=== PATIENT | female | born 1980 | race Caucasian/White ===

== ENCOUNTER 2025-01-13 09:10 | Outpatient (AMB) | payer OTHER, SELFPAY ==
--- NOTE | 2025-01-13 09:18 | MHC.OFFVIS ---
Vital Signs 01/13/25 09:22 Height 5 ft 7 in Weight 213 lb BMI 33.4 BP 118/70 Intake Visit Reasons: AUB Warehouse Operations Associate Required: No Information Interpreted: non-clinical & clinical Accompanied by: Self / Same As Patient Allergies No Known Allergies Allergy (Verified 01/13/25 09:25) Is last menstrual period known: No (mirena) HPI Comments Details: Presenting complaining of irregular menstrual cycles over the last few months, the patient had a pelvic ultrasound in an outside facility, no reports available was told that her IUD position is in the uterine segment. Also the patient is complaining of right vulvar lesion Last co testing in 01/26 was ascus/HPV negative done in an outside facility Last mammogram was done in 12/27 according to patient was negative no reports available [facility] Medical History Anxiety Depression Family History Sister Breast cancer Social History Household Members: None Housing: House Housing Other:: Mobile home Alcohol intake: never Patient Tobacco Use Status: Never used Tobacco Current occupational status: employed Current occupation: Post office Sexually active: Yes Sexual orientation: Straight/Heterosexual Gender identity: Female Female Reproductive History Menstrual Age of Menarche: 13 control method: progestin IUCD Total pregnancies: 0 Date of last pap smear: 01/28/24 Date of Mammogram: 12/31/24 Review of Systems Const All systems reviewed & are unremarkable except as noted in HPI and below Card Reports as per HPI Resp Reports as per HPI GI Reports as per HPI and Reports no additional complaints Reports as per HPI Physical Exam Vital Signs: Last Vital Signs BP 118/70 01/13/25 09:22 BMI result Body Mass Index 33.4 Const General: cooperative, healthy appearing and comfortable Chest Chest palpation & inspection: normal inspection of the chest and normal palpation of entire chest wall Breast/axilla inspection: normal inspection of the breasts and normal inspection of the axillae Breast/axilla palpation: normal palpation of the breasts, normal palpation of the axillae and no axillary lymphadenopathy Resp Effort & Inspection: normal respiratory effort Auscultation: clear to auscultation bilaterally Percussion: percussion normal Cardio Palpation: normal PMI Rate: regular rate Rhythm: regular rhythm Heart sounds: no murmurs and no rubs Peripheral pulses: Peripheral pulses 2+ throughout GI Inspection: Yes normal to inspection Palpation (GI): Soft to palpation, nontender, no guarding, not rigid and No hepatosplenomegaly present Percussion: Yes normal to percussion Auscultation: normal bowel sounds Rectal Exam - Female: deferred General: Yes bladder normal to palpation External Female Exam: No normal external appearance (Right upper labia majora lesion 1 cm) and No lesion Speculum Exam - Vagina: normal appearance of the vagina, normal palpation, normal vaginal discharge and not erythematous Speculum Exam - Cervix: normal appearance of the cervix, normal palpation and Other cervical findings present (IUD string in place) Bimanual exam- vagina & uterus: normal bimanual exam, normal palpation, uterine size normal, bladder normal to palpation, consistency normal and normal palpation Bimanual Exam- Adnexa, other: normal adnexae, no masses and no tenderness Results AMB Test Urine AMB Test Urine Negative Last Edit by Leticia Yu CMA on 01/13/25 09:34 Results Reviewed Results Reviewed: Laboratory Last Values Tst Clinic Negative 01/13/25 09:34 Assessment & Plan Assessment & Plan (1) Abnormal uterine bleeding (AUB): Code(s): N93.9 - Abnormal uterine and vaginal bleeding, unspecified Category: Medical Plan: Screening Co testing done, GC and chlamydia taken CBC, TSH, HCG, and pelvic ultrasound ordered. Discussed with the patient the different causes of abnormal bleeding including thyroid disorders, uterine and ovarian pathology, endometrial hyperplasia, carcinoma and other potential causes. Discussed with the patient the work up including CBC (to r/o anemia), TSH, pelvic Ultrasound, endometrial biopsy to r/o endometrial pathology. All questions answered and the patient verbalized understanding. Instructed the patient to schedule an appointment for an endometrial biopsy in 2 weeks. (2) ASCUS of cervix with negative high risk HPV: Comment: In 01/26 Code(s): R87.610 - Atypical squamous cells of undetermined significance on cytologic smear of cervix (ASC-US) Category: Medical Plan: Co testing done will check the results and treat accordingly (3) Malpositioned IUD: Code(s): T83.32XA - Displacement of intrauterine contraceptive device, initial encounter Category: Medical Plan: Will order pelvic ultrasound, instructions given the patient to use a backup method for control till then. Instructions given the patient to schedule an ultrasound and follow-up appointment within 2 weeks will determine the position of the IUD and treat accordingly (4) Vulvar lesion: Comment: Right upper labia majora Code(s): N90.89 - Other specified noninflammatory disorders of vulva and perineum Category: Medical Plan: Discussed with the patient the finding on pelvic exam right upper labia majora lesion, recommended excisional biopsy, instructions given to patient to schedule an appointment for right excisional biopsy within 2 weeks. Orders: Orders AMB HCG Urine Test Today Z32.02 - Encounter for test, result negative Complete Blood Count no Diff Today N93.9 - Abnormal uterine and vaginal bleeding, unspecified TSH reflex Free T4 Today N93.9 - Abnormal uterine and vaginal bleeding, unspecified MM screening mammo BI Today Z12.31 - Encounter for screening mammogram for malignant neoplasm of breast HCG Quantitative Today N93.9 - Abnormal uterine and vaginal bleeding, unspecified US pelvic and transvaginal Today N93.9 - Abnormal uterine and vaginal bleeding, unspecified Coding Level of Care Code New Pt Level 3 (71326) Diagnoses Abnormal uterine bleeding (AUB) N93.9 ASCUS of cervix with negative high risk HPV R87.610 Malpositioned IUD T83.32XA Vulvar lesion N90.89
[2025-01-13 09:22] VITALS: BP 118/70; BMI 33.4
--- OUTSIDE RECORDS SUMMARY | 2025-01-13 10:35 | XMS_ITS | Clinical Summary ---
Author Organization [facility] Address [address] [place] [address] Care Team Providers Care Hematology Technician Name Role Phone Provider, Jamel BRIDGES Primary Care Provider Un available Social History Tobacco Use Types Packs/Day Years Used Date Smoking Tobacco: Never Assessed Comments Unknown Sex and Gender Information Value Date Recorded Sex Assigned at Female 08/25/2023 9:54 AM EDT Legal Sex Female 6:25 PM EDT Gender Identity Female 08/25/2023 9:54 AM EDT Sexual Orientation Choose not to disclose 2023 9:54 AM EDT Plan of Treatment Health Maintenance Due Date Last Done Comments Hepatitis C Virus Screening 1981 HIV Screening 1994 DTaP/Tdap/Td Vaccines (1 - Tdap) 02/12/2000 Hepatitis B Vaccines (1 of 3 - 19+ 3-dose series) 02/12/2000 HPV Vaccines (1 - 3-dose SCD M series) 02/12/2008 COVID-19 Vaccine (2023-2 5 season) 2025 Pneumococcal Vaccine: Pediat alexandria (0-5 Years) and At-Risk Patients (6 to 49 Years) Aged Out No longer eligible b ased on patient's age to complete this topic Care Teams Hematology Technician Relationship Specialty Start Date End Date ProviderJamel MD PCP - General 11/24/13
== END 2025-01-13 09:58 | disposition home or self-care (01) ==
LOC: HO.HWS 09:10
PROVIDERS: PCP Nurse Practitioner Family; Visit Provider Obstetrics & Gynecology
DX: N93.9 Abnormal uterine and vaginal bleeding, unspecified (principal); R87.610 Atypical squamous cells of undetermined significance on cytologic smear of cervix (ASC-US); T83.32XA Displacement of intrauterine contraceptive device, initial encounter; N90.89 Other specified noninflammatory disorders of vulva and perineum; Z32.02 Encounter for pregnancy test, result negative
CPT/HCPCS: 99203

== ENCOUNTER 2025-01-13 09:10 | Outpatient (REF) | payer OTHER, SELFPAY ==
[2025-01-13 11:12] LABS: Hematocrit 39.1 % (37.0-47.0); Hemoglobin 12.6 g/dl (12.0-16.0); Mean Corpuscular HGB Conc 32.2 g/dl (31.0-35.0); Mean Corpuscular Hemoglobin 26.0 pg (27.0-33.0); Mean Corpuscular Volume 80.8 fL (80.0-98.0); NRBC Abs Auto 0.000 X10*3/uL (0.0-0.012); NRBC Pct Auto 0.0 /100WBC (0.0-0.2); Platelet Count 377 X10*3/uL (160-400); Red Blood Count 4.84 X10*6/uL (4.20-5.50); White Blood Count 7.9 X10*3/uL (4.8-10.8)
== END 2025-01-13 09:11 | disposition home or self-care (01) ==
LOC: HO.LAB 09:10
PROVIDERS: PCP Nurse Practitioner Family; Visit Provider Obstetrics & Gynecology
DX: N93.9 Abnormal uterine and vaginal bleeding, unspecified (principal); T83.32XA Displacement of intrauterine contraceptive device, initial encounter; N90.89 Other specified noninflammatory disorders of vulva and perineum; R87.610 Atypical squamous cells of undetermined significance on cytologic smear of cervix (ASC-US); Z32.02 Encounter for pregnancy test, result negative
CPT/HCPCS: 36415; 81025; 84443; 84702; 85027; 99202

== ENCOUNTER 2025-01-13 09:58 | Outpatient (REF) | payer OTHER, SELFPAY ==
[2025-01-13 22:23] LABS: CT PCR NOT DETECTED (Not Detect.); NG PCR NOT DETECTED (Not Detect.)
== END 2025-01-13 09:59 | disposition home or self-care (01) ==
LOC: HO.LNP 09:58
PROVIDERS: Visit Provider Obstetrics & Gynecology
DX: Z11.51 Encounter for screening for human papillomavirus (HPV) (principal); N93.9 Abnormal uterine and vaginal bleeding, unspecified; R87.610 Atypical squamous cells of undetermined significance on cytologic smear of cervix (ASC-US)
CPT/HCPCS: 87491; 87591; 87626; 88175

== ENCOUNTER 2025-02-03 11:08 | Outpatient (AMB) | payer OTHER, SELFPAY ==
--- NOTE | 2025-02-03 11:45 | MHC.OFFVIS ---
Vital Signs 02/03/25 11:48 Height 5 ft 7 in Weight 210 lb BMI 32.9 BP 138/78 Intake Visit Reasons: iud removal Allergies No Known Allergies Allergy (Verified 01/13/25 09:25) HPI Comments Details: Presenting for EMB. Received a copy of ultrasound done in 11/26 at the [facility] where a pelvic ultrasound showed abnormal IUD location in the cervix. The patient is interested in Mirena IUD reinsertion [facility] Medical History Anxiety Depression Family History Sister Breast cancer Social History Household Members: None Housing: House Housing Other:: Mobile home Alcohol intake: never Patient Tobacco Use Status: Never used Tobacco Current occupational status: employed Current occupation: Post office Sexual orientation: Straight/Heterosexual Gender identity: Female Female Reproductive History Menstrual Age of Menarche: 13 Office Procedures Endometrial Biopsy Details: The patient was counseled regarding the indication and benefits of endometrial sampling to rule out endometrial pathology including not limited to endometrial hyperplasia or endometrial cancer and others; The alternatives (Either do nothing vs. hysteroscopy D&C) & the risks were discussed with the patient including but not limited: pain, uterine perforation, bleeding, infection, possible injury to bladder, bowel, ureter, possible need for blood transfusion with all its possible risks. The patient verbalized understanding all questions answered and signed consent. Urine test done in the office was negative The patient was placed into the dorsal lithotomy position; a speculum was inserted in the vagina. Using aseptic technique for the procedure, the cervix was cleansed with Betadine. The anterior lip of the cervix was grasped with a single tooth tenaculum. The uterus was sounded to 7 cm with a 4 mm Pipelle was used. Tissues samples were obtained and placed in formalin, in a patient labeled container and sent to the pathology department. At the end of the procedure, there was minimal bleeding noted The patient tolerated the procedure well and was discharged in good condition with the following instructions: Nothing in the vagina until the bleeding stops. No sex until the bleeding stops, to call if any of the following occurs: fever (>100.4), flu-like symptoms, abdominal pain, heavy bleeding, four smelling vaginal discharge. The patient was instructed to schedule a Follow up appointment in 2 weeks to discuss pathology results of the biopsy and treatment options. This note was generated with a voice recognition program. Some errors may have been overlooked during the review of this note. Sometimes these errors may affect the content or meaning of a given sentence. 06281-Rfzwrkvgjfp Biopsy IUD Insert/Removal Details Details: The patient is presenting for IUD removal and IUD reinsertion. Her last menstrual period was within the last 5 days, Urine test was done in the office and was negative; All the contraindications were excluded. The following possible complications were discussed with the patient: Intrauterine , Ectopic , Sepsis, Pelvic Infection, Irregular Bleeding and Amenorrhea, Perforation, Expulsion, Ovarian Cysts, Breast Cancer. The following adverse effects were discussed with the patient: alteration of menstrual bleeding pattern, including: unscheduled uterine bleeding decreased uterine bleeding increased scheduled uterine bleeding female genital tract bleeding ,amenorrhea , genital discharge , vulvovaginitis , breast pain , benign ovarian cyst and associated complications , dysmenorrhea , Gastrointestinal disorders abdominal/pelvic pain, headache/migraine , back pain , acne , depression Alternative options were discussed with the patient including but not limited: control pills, patch, NuvaRing, Depo-medroxyprogesterone acetate, Nexplanon, copper IUD, sterilization, vasectomy, others The procedure was explained in detail to patient , at the end patient signed the informed consent obtained. Alternative options were discussed with the patient The patient signed the consent and agreed with the plan; all questions answered. Urine test was done in the office and was negative Preop dx: Requesting Mirena IUD removal and Reinsertion Op: Mirena IUD removal and Mirena insertion Post op dx: same EBL= 10 cc Procedure: The patient was put in the dorsal lithotomy position a speculum was inserted in the vagina the IUD thread identified. Using a Ivette clamp the thread was grasped and the IUD pulled out with no complications. A no touch technique was used throughout the procedure. A speculum was placed into vagina and cervix was cleaned with betadine). A tenaculum was placed. A plastic sound was advanced through the external and internal os until it reached the fundus of the uterus, the depth was 8 cm. The sound was then withdrawn. The IUD was loaded in a sterile manner and advanced into position. The string was visualized and cut to 3 cm. Tenaculum site hemostatic. All instruments removed from vagina. Patient tolerated the procedure well. NO complications were noted. Patient was instructed to call for fever over 100.4, significant pain unrelieved by Motrin, IUD expulsion, heavy bleeding, or abnormal discharge. In addition, the following clinical considerations were discussed with the patient to call for removal: A stroke or heart attack ,Very severe or migraine headaches ,Unexplained fever ,Yellowing of the skin or whites of the eyes, as these may be signs of serious liver problems , or suspected , Pelvic pain or pain during sex ,HIV positive seroconversion in herself or her partner , Possible exposure to sexually transmitted infections Unusual vaginal discharge or genital sores , severe vaginal bleeding or bleeding that lasts a long time, or if she misses a menstrual period, Inability to feel Mirena's threads Counseled the patient that the IUD does not protect against STI's, recommended use of condoms for the first 7 days post insertion and explained to the patient that condoms are recommended for patients at risk for sexually transmitted infections. Follow up appointment made for 4 weeks following insertion. Date of removal in no more than five years for DUB treatment and 8 years for contraception from today?s date was d/w patient. This note was generated with a voice recognition program. Some errors may have been overlooked during the review of this note. Sometimes these errors may affect the content or meaning of a given sentence. 56915-TOE Insertion 96511-TEF Removal Procedure code (CPT) selection complete Office Meds Mirena 21 mcg/24 hr (up to 8 years) 52 mg intrauterine device Performing Provider: Pierce Estes MD Performing Location: [facility] [place] [facility] Documented (not given) by: Pierce Estes MD on 02/03/25 12:09 Dose Route Admin Location Dispensed Lot Number Expiration Date [facility] Continuous Vulcanizing Machine Operator 1 device intrauterine ea Total Dispensed Waste n/a n/a Assessment & Plan Assessment & Plan (1) Malpositioned IUD: Code(s): T83.32XA - Displacement of intrauterine contraceptive device, initial encounter Category: Medical Plan: Discussed with the patient the finding on ultrasound abnormal IUD location,, did IUD removal (2) Encounter for IUD removal and reinsertion: Code(s): Z30.433 - Encounter for removal and reinsertion of intrauterine contraceptive device Category: Medical Plan: Mirena IUD removed and new Mirena IUD reinserted, see procedure note (3) Abnormal uterine bleeding (AUB): Code(s): N93.9 - Abnormal uterine and vaginal bleeding, unspecified Category: Medical Plan: EMB done see procedure note Orders: Orders AMB HCG Urine Test Today Z32.02 - Encounter for test, result negative AMB Endometrial Biopsy Today N93.9 - Abnormal uterine and vaginal bleeding, unspecified AMB IUD Insertion/Removal - Practice Supplied Today Z30.433 - Encounter for removal and reinsertion of intrauterine contraceptive device Medications: New Mirena (levonorgestrel) 1 device intrauterine ONCE 1 ea 0RF Malpositioned IUD NS Z30.433 - Encounter for removal and reinsertion of intrauterine contraceptive device Coding Level of Care Code Est Pt Level 3 (62490) Procedure Only Diagnoses Malpositioned IUD T83.32XA Encounter for IUD removal and reinsertion Z30.433 Abnormal uterine bleeding (AUB) N93.9 CPT Codes Endometrial Biopsy - CPT: 71379-Xammupwtxol Biopsy ([id number]) Details - CPT: 22526-OBQ Insertion ([id number]) Details - CPT: 92070-ORO Removal ([id number])
[2025-02-03 11:48] VITALS: BP 138/78; BMI 32.9
--- OUTSIDE RECORDS SUMMARY | 2025-02-03 13:03 | XMS_ITS | Clinical Summary ---
Author Organization [facility] Address [address] [place] [address] Care Team Providers Care Plastic Surgery Assistant Name Role Phone Provider, Jamel BRIDGES Primary [...] of 3 - 19+ 3-dose series) 02/12/2000 COVID-19 Vaccine (2023-2 5 season) 2025 HPV Vaccines (No Doses Required) Completed Pneumococcal Vaccine: Pediat alexandria (0-5 Years) and At-Risk Patients (6 to 49 Years) Aged Out No longer eligible b ased on patient's age to complete this topic Care Teams Plastic Surgery Assistant Relationship Specialty Start Date End Date Provider, MD Jamel PCP - General 11/24/13
== END 2025-02-03 12:14 | disposition home or self-care (01) ==
LOC: HO.HWS 11:08
PROVIDERS: PCP Nurse Practitioner Family; Visit Provider Obstetrics & Gynecology
DX: Z30.433 Encounter for removal and reinsertion of intrauterine contraceptive device (principal); T83.32XA Displacement of intrauterine contraceptive device, initial encounter; N93.9 Abnormal uterine and vaginal bleeding, unspecified
CPT/HCPCS: 58100; 58300; 58301

== ENCOUNTER 2025-02-03 11:08 | Outpatient (REF) | payer OTHER, SELFPAY | END 2025-02-03 11:09 | disposition home or self-care (01) | LOC: HO.LNP 11:08 | PROVIDERS: PCP Nurse Practitioner Family; Visit Provider Obstetrics & Gynecology | DX: T83.32XA Displacement of intrauterine contraceptive device, initial encounter (principal); Z30.433 Encounter for removal and reinsertion of intrauterine contraceptive device; N93.9 Abnormal uterine and vaginal bleeding, unspecified; Z32.02 Encounter for pregnancy test, result negative | CPT/HCPCS: 88305 ==

== ENCOUNTER 2025-02-24 11:39 | Outpatient (REF) | payer OTHER, SELFPAY | END 2025-02-24 11:40 | disposition home or self-care (01) | LOC: HO.LNP 11:39 | PROVIDERS: PCP Nurse Practitioner Family; Visit Provider Obstetrics & Gynecology | DX: N93.9 Abnormal uterine and vaginal bleeding, unspecified (principal); Z32.02 Encounter for pregnancy test, result negative | CPT/HCPCS: 58100; 81025; 88305 ==

== ENCOUNTER 2025-02-24 11:39 | Outpatient (AMB) | payer OTHER, SELFPAY ==
--- NOTE | 2025-02-24 11:47 | MHC.OFFVIS ---
Vital Signs 02/24/25 11:55 Height 5 ft 7 in Weight 210 lb BMI 32.9 BP 126/82 Intake Visit Reasons: Repeat EMB Status Controller Required: No Information Interpreted: non-clinical & clinical Residential Care Facility Manager: Residential Care Facility Manager Present (Leticia MAGAÑA) Accompanied by: Self / Same As Patient Allergies No Known Allergies Allergy (Verified 02/24/25 11:56) HPI Comments Details: Presenting for repeat EMB last EMB pathology showed the following: Endometrium, biopsy: - Inflamed endocervical mucosa with focal squamous metaplasia and reactive changes; abundant mucoinflammatory material and blood; no atypia identified. - No significant endometrial tissue present. Comment: Consider repeat, as clinically appropriate. [facility] Medical History Anxiety Depression Family History Sister Breast cancer Social History Household Members: None Housing: House Housing Other:: Mobile home Alcohol intake: never Patient Tobacco Use Status: Never used Tobacco Current occupational status: employed Current occupation: Post office Sexual orientation: Straight/Heterosexual Gender identity: Female Female Reproductive History Menstrual Age of Menarche: 13 Physical Exam Vital Signs: Last Vital Signs BP 126/82 02/24/25 11:55 BMI result Body Mass Index 32.9 Office Procedures Endometrial Biopsy Details: The patient was counseled regarding the indication and benefits of endometrial sampling to rule out endometrial pathology including not limited to endometrial hyperplasia or endometrial cancer and others; The alternatives (Either do nothing vs. hysteroscopy D&C) & the risks were discussed with the patient including but not limited: pain, uterine perforation, bleeding, infection, possible injury to bladder, bowel, ureter, possible need for blood transfusion with all its possible risks. The patient verbalized understanding all questions answered and signed consent. Urine test done in the office was negative The patient was placed into the dorsal lithotomy position; a speculum was inserted in the vagina. Using aseptic technique for the procedure, the cervix was cleansed with Betadine. The anterior lip of the cervix was grasped with a single tooth tenaculum. The uterus was sounded to 7 cm with a 4 mm Pipelle was used. Tissues samples were obtained and placed in formalin, in a patient labeled container and sent to the pathology department. At the end of the procedure, there was minimal bleeding noted The patient tolerated the procedure well and was discharged in good condition with the following instructions: Nothing in the vagina until the bleeding stops. No sex until the bleeding stops, to call if any of the following occurs: fever (>100.4), flu-like symptoms, abdominal pain, heavy bleeding, four smelling vaginal discharge. The patient was instructed to schedule a Follow up appointment in 2 weeks to discuss pathology results of the biopsy and treatment options. This note was generated with a voice recognition program. Some errors may have been overlooked during the review of this note. Sometimes these errors may affect the content or meaning of a given sentence. 02044-Lgtrymxrvel Biopsy Results AMB Test Urine AMB Test Urine Negative Last Edit by Leticia Yu CMA on 02/24/25 11:56 Results Reviewed Results Reviewed: Laboratory Last Values Tst Clinic Negative 02/24/25 11:55 Assessment & Plan Assessment & Plan (1) Abnormal uterine bleeding (AUB): Code(s): N93.9 - Abnormal uterine and vaginal bleeding, unspecified Category: Medical Plan: Repeat EMB done, see procedure note Orders: Orders AMB Endometrial Biopsy Today N93.9 - Abnormal uterine and vaginal bleeding, unspecified AMB HCG Urine Test Today Z32.02 - Encounter for test, result negative Coding Level of Care Code Procedure Only Diagnoses Abnormal uterine bleeding (AUB) N93.9 CPT Codes Endometrial Biopsy - CPT: 23056-Fmazuyxviww Biopsy ([id number])
[2025-02-24 11:55] VITALS: BP 126/82; BMI 32.9
--- OUTSIDE RECORDS SUMMARY | 2025-02-24 14:53 | XMS_ITS | Clinical Summary ---
Author Organization [facility] Address [address] [place] [address] Care Team Providers Care Patient Financial Specialist Name Role Phone Provider, Jamel BRIDGES Primary [...] - 19+ 3-dose series) 02/12/2000 COVID-19 Vaccine ( - 2023-2 5 season) 2025 HPV Vaccines (No Doses Required) Completed Pneumococcal Vaccine: Pediat alexandria (0-5 Years) and At-Risk Patients (6 to 49 Years) Aged Out No longer eligible b ased on patient's age to complete this topic Care Teams Patient Financial Specialist Relationship Specialty Start Date End Date Provider, MD Jamel PCP - General 11/24/13
== END 2025-02-24 12:20 | disposition home or self-care (01) ==
LOC: HO.HWS 11:40
PROVIDERS: PCP Nurse Practitioner Family; Visit Provider Obstetrics & Gynecology
DX: N93.9 Abnormal uterine and vaginal bleeding, unspecified (principal); Z32.02 Encounter for pregnancy test, result negative
CPT/HCPCS: 58100

== ENCOUNTER 2025-03-16 09:34 | Outpatient (REF) | payer OTHER, SELFPAY | END 2025-03-16 09:35 | disposition home or self-care (01) | LOC: HO.LNP 09:34 | PROVIDERS: PCP Nurse Practitioner Family; Visit Provider Obstetrics & Gynecology | DX: T83.32XA Displacement of intrauterine contraceptive device, initial encounter (principal); N93.9 Abnormal uterine and vaginal bleeding, unspecified; N90.89 Other specified noninflammatory disorders of vulva and perineum; Z32.02 Encounter for pregnancy test, result negative | CPT/HCPCS: 56605; 88304; 88305; 99212 ==

== ENCOUNTER 2025-03-16 09:34 | Outpatient (AMB) | payer OTHER, SELFPAY ==
--- NOTE | 2025-03-16 09:47 | MHC.OFFVIS ---
Vital Signs 03/16/25 10:06 Height 5 ft 7 in Weight 210 lb BMI 32.9 BP 114/78 Intake Visit Reasons: EMB results/IUD check ,vulva bx Field Servicer Required: No Information Interpreted: non-clinical & clinical Tamping Machine [employer] Forms: Tamping [employer] Forms Present (Leticia Wallsdaisy MAGAÑA) Accompanied by: Self / Same As Patient Allergies No Known Allergies Allergy (Verified 03/16/25 10:22) Is last menstrual period known: No (mirena) HPI Comments Details: The patient is presenting after endometrial biopsy, IUD check and vulvar biopsy of a right upper vulvar lesion. The patient has no complaints, no vaginal bleeding, no feverishness chills or abdominal pain. 02/25/2025 endometrial biopsy done, the pathology report showed the following: Predominantly mucus and blood with benign endocervical glandular mucosa and scant squamous epithelium; insufficient for endometrial evaluation. 02/04/2025 EMB done, pathology showed the following: Endometrium, biopsy: - Inflamed endocervical mucosa with focal squamous metaplasia and reactive changes; abundant mucoinflammatory material and blood; no atypia identified. - No significant endometrial tissue present. Comment: Consider repeat, as clinically appropriate [facility] Medical History (Updated 03/16/25 @ 10:20 by Pierce Estes MD) ASCUS of cervix with negative high risk HPV Anxiety Depression Family History Sister Breast cancer Social History Household Members: None Housing: House Housing Other:: Mobile home Alcohol intake: never Patient Tobacco Use Status: Never used Tobacco Current occupational status: employed Current occupation: Post office Sexual orientation: Straight/Heterosexual Gender identity: Female Female Reproductive History Menstrual Age of Menarche: 13 control method: progestin IUCD Review of Systems Const All systems reviewed & are unremarkable except as noted in HPI and below Physical Exam General: Yes no CVA tenderness External Female Exam: normal external appearance and normal appearance of the urethra Speculum Exam - Vagina: normal appearance of the vagina, normal palpation, no lesions and no masses Speculum Exam - Cervix: normal appearance of the cervix, normal palpation, no lesions, no masses and nontender Bimanual exam- vagina & uterus: normal bimanual exam, normal palpation, uterine size normal, normal palpation, uterine shape normal, No Cervical tenderness present and non-tender Bimanual Exam- Adnexa, other: normal adnexae Back/Spine/Pelvis Back: no CVA tenderness Office Procedures REAL ESTATE LEGAL ASSISTANT Biopsy Before the procedure was started d/w patient the procedure, alternatives ( do nothing, medical rx), & all the risks associated with the procedure ( bleeding , infection, vulvar scarring, painful intercourse, injury to vessels, possible need for transfusion with all its risks) then patient signed the consent. Preop dx: Right upper labia majora lesion Op: Right upper labia majora n excision Post op: Same Anesthesia: Lidocaine 1% 3cc used Procedure: Using betadine the area was scrubbed and draped in the usual manner. 3 cc of lidocaine was used for anesthesia at the Right upper labia majora esion area ; using 11 blade scalpel an incision was done at the area of the right upper labia majora lesion and using pickup and scissors the lesion was excised, Vicryl was used to approximate the edges. Pressure was used for hemostasis. The patient tolerated the procedure well. Discharge Instructions: The patient was instructed to schedule an appointment in 2 weeks for follow-up and to call if temp>100.4, area of the biopsy redness or pain, nausea/vomiting. This note was generated with a voice recognition program. Some errors may have been overlooked during the review of this note. Sometimes these errors may affect the content or meaning of a given sentence. 88655-Ffvmrx of Vulva/Perineum Procedure code (CPT) selection complete Assessment & Plan Assessment & Plan (1) Abnormal uterine bleeding (AUB): Comment: EMB insufficient x2 Code(s): N93.9 - Abnormal uterine and vaginal bleeding, unspecified Category: Medical Plan: Discussed with the patient the results of the endometrial biopsy pathology x2, no endometrial tissues identified, therefore explained to the patient the endometrial pathology including endometrial hyperplasia or malignancy has not been ruled out, recommended hysteroscopy D&C possible polypectomy/myomectomy with IUD removal and reinsertion, the patient would like to think about get back to me (2) Vulvar lesion: Comment: Right upper labia majora Code(s): N90.89 - Other specified noninflammatory disorders of vulva and perineum Category: Medical Plan: Right upper vulvar lesion excisional biopsy done, see procedure note (3) IUD strings lost: Code(s): T83.32XA - Displacement of intrauterine contraceptive device, initial encounter Category: Medical Plan: Explained to the patient the finding on pelvic exam no evidence of IUD string will order pelvic ultrasound to evaluate the IUD position Orders: Orders AMB REAL ESTATE LEGAL ASSISTANT Biopsy Today N90.89 - Other specified noninflammatory disorders of vulva and perineum US pelvic and transvaginal Today T83.32XA - Displacement of intrauterine contraceptive device, initial encounter Coding Level of Care Code Est Pt Level 3 (46433) Procedure Only Diagnoses Abnormal uterine bleeding (AUB) N93.9 Vulvar lesion N90.89 IUD strings lost T83.32XA CPT Codes REAL ESTATE LEGAL ASSISTANT Biopsy - CPT: 47994-Jancsj of Vulva/Perineum ([id number])
[2025-03-16 10:06] VITALS: BP 114/78; BMI 32.9
== END 2025-03-16 11:12 | disposition home or self-care (01) ==
LOC: HO.HWS 09:34
PROVIDERS: PCP Nurse Practitioner Family; Visit Provider Obstetrics & Gynecology
DX: N93.9 Abnormal uterine and vaginal bleeding, unspecified (principal); N90.89 Other specified noninflammatory disorders of vulva and perineum; T83.32XA Displacement of intrauterine contraceptive device, initial encounter
CPT/HCPCS: 56605; 99213

== ENCOUNTER 2025-03-25 09:28 | Outpatient (REF) | payer OTHER, SELFPAY ==
--- NOTE | ~2025-03-25 | US_ITS ---
EXAMINATION: US PELVIS CLINICAL INFORMATION: T83.32XA - iud threads lost COMPARISON: None available. TECHNIQUE: Ultrasound of the pelvis is performed using both transabdominal and transvaginal transducers along with Doppler. Transvaginal imaging is performed due to inadequate visualization transabdominally. FINDINGS: Uterus: The uterus is anteverted and measures 9.7 x 5.5 x 6.7 cm. The double wall endometrial thickness is 1 mm. IUD has migrated into the lower uterine canal. It appears inverted. It appears to have perforated into the myometrium in the region of the cervix. There are 3 heterogeneous hypoechoic lesions consistent with uterine leiomyomas. Left upper uterine myometrial leiomyoma: 1.1 x 0.9 x 1.1 cm. Posterior left upper uterine subserosal leiomyoma: 0.9 x 0.7 x 1.0 cm. Left upper uterine body intramural-submucosal leiomyoma: 1.7 x 1.2 x 2.0 cm. Adnexa: Both ovaries are visualized. There is normal color flow to the adnexa. There is no ovarian torsion. There is no pelvic ascites or fluid collection. Right ovary measures 3.4 x 2.1 x 2.4 cm. There is a dominant follicle Left ovary measures 3.8 x 1.5 x 1.8 cm. US/US pelvic and transvaginal IMPRESSION: IUD malpositioning with suspected perforation: IUD appears inverted and extends beyond the endocervical canal into the cervical myometrium. Notification read via [employer] at 10:27am EST by Dr Estes. Fibroid uterus. Electronically signed by: Pito Rouse MD 03/25/2025 10:28 AM EST
== END 2025-03-25 09:29 | disposition home or self-care (01) ==
LOC: HO.US 09:28
PROVIDERS: PCP Nurse Practitioner Family; Visit Provider Obstetrics & Gynecology
DX: T83.32XA Displacement of intrauterine contraceptive device, initial encounter (principal)
CPT/HCPCS: 76830; 76856

== ENCOUNTER → 2025-03-25 09:31 | Outpatient (BNV) | payer OTHER, SELFPAY | PROVIDERS: PCP Nurse Practitioner Family; Visit Provider Radiology Diagnostic Radiology | DX: T83.32XA Displacement of intrauterine contraceptive device, initial encounter (principal); D25.9 Leiomyoma of uterus, unspecified | CPT/HCPCS: 76830; 76856 ==

== ENCOUNTER 2025-03-30 09:22 | Outpatient (AMB) | payer OTHER, SELFPAY ==
--- NOTE | 2025-03-30 09:40 | MHC.OFFVIS ---
Vital Signs 03/30/25 09:47 Height 5 ft 7 in Weight 208 lb BMI 32.6 BP 128/86 Intake Visit Reasons: IUD removal Furnace Puncher Required: No Information Interpreted: non-clinical & clinical Photographic Editor: Photographic Editor Present Accompanied by: Self / Same As Patient Allergies No Known Allergies Allergy (Verified 03/30/25 09:47) Is last menstrual period known: Yes Last menstrual period: 03/02/20 Post menopausal: No Patient : No Do you need a note to return to daycare/school/sports/work: Yes (for surgery on friday) HPI Comments Details: Presenting for ultrasound follow-up which showed the following; Uterus: The uterus is anteverted and measures 9.7 x 5.5 x 6.7 cm. The double wall endometrial thickness is 1 mm. IUD has migrated into the lower uterine canal. It appears inverted. It appears to have perforated into the myometrium in the region of the cervix. There are 3 heterogeneous hypoechoic lesions consistent with uterine leiomyomas. Left upper uterine myometrial leiomyoma: 1.1 x 0.9 x 1.1 cm. Posterior left upper uterine subserosal leiomyoma: 0.9 x 0.7 x 1.0 cm. Left upper uterine body intramural-submucosal leiomyoma: 1.7 x 1.2 x 2.0 cm. Adnexa: Both ovaries are visualized. There is normal color flow to the adnexa. There is no ovarian torsion. There is no pelvic ascites or fluid collection. Right ovary measures 3.4 x 2.1 x 2.4 cm. There is a dominant follicle Left ovary measures 3.8 x 1.5 x 1.8 cm. The patient had to EMB is with tissues insufficient for endometrial evaluation [facility] Medical History ASCUS of cervix with negative high risk HPV Anxiety Depression Family History Sister Breast cancer Social History Household Members: None Housing: House Housing Other:: Mobile home Alcohol intake: never Patient Tobacco Use Status: Never used Tobacco Current occupational status: employed Current occupation: Post office Sexual orientation: Straight/Heterosexual Gender identity: Female Female Reproductive History Menstrual Age of Menarche: 13 Date of last menstrual period: 03/02/20 Total pregnancies: 2 Full term: 2 Review of Systems Card Reports as per HPI and Reports no additional complaints Resp Reports as per HPI and Reports no additional complaints GI Reports as per HPI and Reports no additional complaints Reports as per HPI Physical Exam Vital Signs: Last Vital Signs BP 128/86 03/30/25 09:47 BMI result Body Mass Index 32.6 Const General: cooperative, healthy appearing and comfortable Resp Effort & Inspection: normal respiratory effort Auscultation: clear to auscultation bilaterally Percussion: percussion normal Cardio Palpation: normal PMI Rate: regular rate Rhythm: regular rhythm Heart sounds: no murmurs and no rubs Peripheral pulses: Peripheral pulses 2+ throughout GI Inspection: Yes normal to inspection Palpation (GI): Soft to palpation, nontender, no guarding, not rigid and No hepatosplenomegaly present Percussion: Yes normal to percussion Auscultation: normal bowel sounds Rectal Exam - Female: deferred Assessment & Plan Assessment & Plan (1) Malpositioned IUD: Code(s): T83.32XA - Displacement of intrauterine contraceptive device, initial encounter Category: Medical Plan: Discussed with the patient the finding on ultrasound, recommended office IUD removal and Mirena IUD insertion, the patient declined it in the office , recommended hysteroscopic IUD removal as the next step in the management with Mirena IUD insertion. The patient agreed. (2) Abnormal uterine bleeding (AUB): Comment: EMB insufficient x2 Code(s): N93.9 - Abnormal uterine and vaginal bleeding, unspecified Category: Medical Plan: Discussed with the patient the results the EMB, recommended hysteroscopy D&C possible polypectomy myomectomy with IUD removal and new Mirena IUD insertion Discussed with the patient the procedure , all benefits and risks including but not limited to inability to complete the procedure , insufficient endometrial tissue for a complete evaluation of the endometrial cavity , bleeding, infection, possible need for blood transfusion with all its risk ( HIV,syphilis, Hepatitis, anaphylaxis shock, others..), injury to bladder, rectum, possible need for laparoscopy/laparotomy or hysterectomy. Discussed with the patient the options of treatment including Lysteda, control pills, Mirena IUD, endometrial ablation and hysterectomy. All pros, cons, risks and benefits if each option was discussed with the patient and the patient decided to go ahead with an you Mirena IUD insertion after Mirena IUD removal so a more detailed discussion about it was conducted including mechanism of action, risks (uterine perforation, infection, injury to bladder, bowel, displacement, and others) benefits (hypo menorrhea, amenorrhea, ...) All questions answered, the patient verbalized understanding The patient verbalized understanding and signed the consent. Instructions given the patient to stay NPO after midnight the day prior to the procedure and to take only the specific medication (s) discussed the morning of the surgical procedure and to schedule a 2 week postoperative appointment Coding Level of Care Code Est Pt Level 3 (66848) Diagnoses Malpositioned IUD T83.32XA Abnormal uterine bleeding (AUB) N93.9
[2025-03-30 09:47] VITALS: BP 128/86; BMI 32.6
== END 2025-03-30 10:13 | disposition home or self-care (01) ==
LOC: HO.HWS 09:23
PROVIDERS: PCP Nurse Practitioner Family; Visit Provider Obstetrics & Gynecology
DX: T83.32XA Displacement of intrauterine contraceptive device, initial encounter (principal); N93.9 Abnormal uterine and vaginal bleeding, unspecified
CPT/HCPCS: 99213

== ENCOUNTER → 2025-03-30 09:22 | Outpatient (BNVA) | payer OTHER, SELFPAY ==
--- NOTE | 2025-04-04 08:26 | P.CONAN_ITS ---
Documented by User: Sona De Los Santos NP 04/04/25 08:27 HPI - Anesthesia Eval Consult details Narrative: 45 yr old female for D&C hysteroscopy, myomectomy PMFSH Active Problems Active Problems: All Active Problems IUD strings lost (Acute) IUD check up (Acute) Encounter for IUD removal and reinsertion (Acute) Vulvar lesion (Acute) Malpositioned IUD (Acute) Abnormal uterine bleeding (AUB) (Acute) Past Medical History Medical History ASCUS of cervix with negative high risk HPV Anxiety Depression Family History Family History Sister Breast cancer Social History Social History Household Members: None Housing: House Housing Other:: Mobile home Alcohol intake: never Patient Tobacco Use Status: Never used Tobacco Current occupational status: employed Current occupation: Post office Sexual orientation: Straight/Heterosexual Gender identity: Female Meds Allergies Allergy/AdvReac Type Severity Reaction Status Date / Time No Known Allergies Allergy Verified 03/30/25 09:47 Home Medications ?Medication ?Instructions ?Recorded ?Confirmed ?Last Taken ?Type levonorgestrel (Mirena) intrauterine 01/05/25 Unkno wn History Documented by User: Madie Mensah MD 04/04/25 10:36 PMFSH Past Medical History Medical History ASCUS of cervix with negative high risk HPV Anxiety Depression Family History Family History Sister Breast cancer Family history of problems with anesthesia: No Surgical History History of Problems with Anesthesia: No Social History Social History Household Members: None Housing: House Housing Other:: Mobile home Alcohol intake: never Patient Tobacco Use Status: Never used Tobacco Current occupational status: employed Current occupation: Post office Sexual orientation: Straight/Heterosexual Gender identity: Female Meds Allergies Allergy/AdvReac Type Severity Reaction Status Date / Time No Known Allergies Allergy Verified 03/30/25 09:47 Home Medications ?Medication ?Instructions ?Recorded ?Confirmed ?Last Taken ?Type levonorgestrel (Mirena) intrauterine 01/05/25 Unkno wn History Exam Airway Mallampati Class: II TM Dist: >3cm Neck ROM: Full Heart: rrr Lungs: cta Assessment and Plan Assessment Anesthesia Assessment: Anesthesia Plan Discussed and Chart Reviewed Final Anesthetic Review Family History of Problems with Anesthesia: No History of Problems with Anesthesia: No NPO: Yes ASA Class: II Final Preanesthetic Review: No Changes in Pt Med Stat, Meds/Allgs Chart Reviewed, Consent Obtained/Reviewed and Anes Risks/Benef Reviewed Patient Risk: Low Procedure Risk: Low Anesthetic Plan Anesthetic Plan: GA and Agree w/ Assess. and Plan Disposition: Standard PACU
== END ==
PROVIDERS: PCP Nurse Practitioner Family; Visit Provider Obstetrics & Gynecology
DX: T83.32XA Displacement of intrauterine contraceptive device, initial encounter (principal); N93.9 Abnormal uterine and vaginal bleeding, unspecified
CPT/HCPCS: 99212

== ENCOUNTER 2025-04-04 11:13 | Day surgery (SDC) | payer OTHER, SELFPAY ==
[2025-04-04] VITALS (7 sets, daily range): BP systolic 157–163; BP diastolic 86–93; PULSE 55–73; RESP 12–18; TEMP 36.1–36.7; O2SAT 96–100; BMI 30.7
[2025-04-04 11:38] LABS: UPreg QC Valid YES
[2025-04-04] MEDS: Lactated Ringers 1,000 ML 100 ML IVCONT (11:39)
--- NOTE | 2025-04-04 12:36 | MHC.SHP ---
Pre-Procedural Eval Section A - 24 Hr Update-Section A only Date of Service: 04/04/25 The patient is an INPATIENT: No Changes since office visit: No Cold of Flu in the past 2 weeks, No New Medical Problems, No Changes in Medication and No Patient answered all questions The patient has been examined within 24 hours of the surgical procedure. The History & Physical has been completed within 30 days and I have reviewed it.: Yes Section B - Complete if H&P > 30 days Chief Complaint: Abnormal uterine and vaginal bleeding, unspecified Allergies: Allergies Allergy/AdvReac Type Severity Reaction Status Date / Time No Known Allergies Allergy Verified 04/04/25 11:35 Plan Diagnosis/Plan: Unchanged I have reviewed the history and physical and performed a pertinent physical examination on my patient. No changes have occurred unless specified. Time Spent With Patient Time: Total time managing care of this patient today ____ minutes.
--- NOTE | 2025-04-04 13:07 | PM.OP ---
Brief Operative Note Date of Service: 04/04/25 Pre-op diagnosis: AUB, IUD displacement Post-op diagnosis: same Procedure: Hysteroscopy D&C, IUD removal and Mirena IUD insertion Surgeon: Pierce Estes MD Anesthesia: GLMA Was an Dolly Driver used for this Procedure?: No Estimated blood loss (mL): 0 Pathology: other (Endometrial Scrapping. Mirena IUD) Condition: stable Disposition: PACU
--- NOTE | 2025-04-04 13:08 | P.OP_ITS ---
Operative Note Operative Note Date of Service: 04/04/25 Narrative: Preop Diagnosis: Abnormal uterine bleeding, displaced IUD Operation: Diagnostic Hysteroscopy, Dilataion & Curettage , Mirena IUD removal and reinsertion Post Op Diagnosis: Normal endometrial and endocervical cavity, no evidence of pathology QBL: Minimal Anesthesia: GLMA Surgeon: Pierce Estes MD Shearing Machine Tender: None Complication: None Pathology: Endometrial Scrapings Procedure: The patient was put in the dorsal lithotomy position, scrubbed, and draped in the usual manner. A sterile speculum was inserted in the patient's vagina. The anterior lip of the cervix was grasped with a single tooth tenaculum. The cervix was dilated up to 5 mm, then the scope was inserted in the patient's uterus. Inspection revealed Mirena IUD in utero , normal endocervical & endometrial cavity with no evidence of pathology. Hysteroscopic Grasper was inserted through the diagnostic operative port and IUD string grasped and Mirena IUD taken out the uterine cavity with no difficulty. The scope was taken out of the uterine cavity , then sharp curetting was carried on with no complications. Then uterine sound was advanced through the external and internal os until it reached the fundus of the uterus, the depth was 8 cm. The sound was then withdrawn. The IUD was loaded in a sterile manner and advanced into position. The string was visualized and cut to 3 cm. Tenaculum site hemostatic. All instruments removed from vagina. Hemostasis was assured using Monsel's solution pressure. And the patient was transferred to PACU in a stable condition This note was generated with a voice recognition program. Some errors may have been overlooked during the review of this note. Sometimes these errors may affect the content or meaning of a given sentence.
== END 2025-04-04 14:11 | disposition home or self-care (01) ==
PROVIDERS: Nurse Practitioner; PCP Nurse Practitioner Family; Visit Provider Obstetrics & Gynecology
PROC: 0UDB8ZZ Extraction of Endometrium, Via Natural or Artificial Opening Endoscopic (ICD-10-PCS; CPT 58558; principal; 2025-04-04 12:30)
DX: T83.32XA Displacement of intrauterine contraceptive device, initial encounter (principal); N93.9 Abnormal uterine and vaginal bleeding, unspecified; Y76.2 Prosthetic and other implants, materials and accessory obstetric and gynecological devices associated with adverse incidents; N72 Inflammatory disease of cervix uteri; N85.8 Other specified noninflammatory disorders of uterus; F32.A Depression, unspecified; F41.9 Anxiety disorder, unspecified
CPT/HCPCS: 58558; 58301; 58300; 81025; 88300; 88305; J0131; J1100; J1885; J2003; J2405; J2704; J7298

== ENCOUNTER → 2025-04-04 11:13 | Outpatient (BNV) | payer OTHER, SELFPAY | PROVIDERS: PCP Nurse Practitioner Family; Visit Provider Obstetrics & Gynecology | DX: N93.9 Abnormal uterine and vaginal bleeding, unspecified (principal); T83.32XA Displacement of intrauterine contraceptive device, initial encounter; Z30.433 Encounter for removal and reinsertion of intrauterine contraceptive device | CPT/HCPCS: 58300; 58301; 58558 ==

== ENCOUNTER 2025-04-21 12:03 | Outpatient (AMB) | payer OTHER, SELFPAY ==
--- NOTE | 2025-04-21 12:04 | A.OFFVIS_ITS ---
Intake Visit Reasons: post op Allergies No Known Allergies Allergy (Verified 04/04/25 11:35) HPI Comments Details: The patient is presenting post hysteroscopy D&C IUD removal and new Mirena IUD insertion no complaints minimal vaginal bleeding no feverishness chills or abdominal pain. The pathology showed the following: A. Intrauterine device: - Consistent with intrauterine device. Gross examination only. - Superficial fragments of benign endocervical tissue; mucoinflammatory material. B. Endometrium, curettage: - Disordered proliferative endometrium; no atypia or hyperplasia identified. - Endocervical epithelium within normal limits; mucoinflammatory materia [facility] Medical History ASCUS of cervix with negative high risk HPV Anxiety Depression Surgical History Hx of wisdom tooth extraction Family History Sister Breast cancer Social History Household Members: None Housing: House Housing Other:: Mobile home Are you a primary director of healthcare systems to a significant other at home: No Do you presently have visiting nurse or other home services: No Alcohol intake: never Patient Tobacco Use Status: Never used Tobacco Current occupational status: employed Current occupation: Post office Sexual orientation: Straight/Heterosexual Gender identity: Female Female Reproductive History Menstrual Age of Menarche: 13 Telehealth Telehealth Telehealth Platform: [facility] Location of provider rendering services: practice address Location of patient: address on file Patient Identification confirmed using: Name, : Yes Telehealth method: video Patient verbally consented to treatment: Yes Patient verbally consented to billing insurance company: Yes Patient informed of any privacy concerns related to visit: Yes Minutes spent on Phone/Video with Pt.: 3 Assessment & Plan Assessment & Plan (1) Abnormal uterine bleeding (AUB): Code(s): N93.9 - Abnormal uterine and vaginal bleeding, unspecified Category: Medical Plan: Discussed with the patient the intraoperative findings, IUD removal and new IUD insertion in addition to the results the pathology, the patient is reassured all questions answered, the patient verbalized understanding I spent a total of 20 minutes reviewing the chart, talking to the patient via video and documenting in the medical record. Coding Level of Care Code Tele Est Pt Level 3 (55890) Diagnoses Abnormal uterine bleeding (AUB) N93.9
== END 2025-04-21 13:57 | disposition home or self-care (01) ==
LOC: HO.HWS 12:03
PROVIDERS: PCP Nurse Practitioner Family; Visit Provider Obstetrics & Gynecology
DX: N93.9 Abnormal uterine and vaginal bleeding, unspecified (principal)
CPT/HCPCS: 99213